=== PATIENT | male | born 1970 ===

== ENCOUNTER 2023-11-05 23:43 | Observation (INO) | payer OTHER ==
[2023-11-06 01:51] LABS: BASO % 1.1 % (0-2.0); EOS % 2.5 % (0-4.5); HEMATOCRIT 25.2 % (35.4-49); HEMOGLOBIN 8.2 GM/dL (11.7-16.9); LYMPH % 14.7 % (8-40); MCH 27.3 pg (25.7-33.7); MCHC 32.5 g/dl (32.0-35.9); MEAN PLT VOLUME 8.7 fl (7.5-11.1); NEUT % 74.7 % (42.8-82.8); PLATELET COUNT 280 10^3/uL (134-434); RDW 25.4 % (11.9-15.9)
[2023-11-06] MEDS: CLINDAMYCIN 300 MG PREMIX IVPB 300 MG/50 ML BAG IVPB ONE (02:15)
[2023-11-06 02:52] LABS: ALBUMIN 2.1 g/dl (3.4-5.0); BLOOD UREA NITROGEN 34.4 mg/dL (7-18)
[2023-11-06 02:56] LABS: CREATININE 2.3 mg/dL (0.55-1.3)
[2023-11-06 02:57] LABS: BILIRUBIN,TOTAL 0.9 mg/dL (0.2-1); TOT PROT 6.9 g/dl (6.4-8.2)
[2023-11-06 04:39] LABS: OVALOCYTE 1+
[2023-11-06] MEDS ORDERED: oxyCODONE HCL 5 MG TABLET PO PRN (06:46)
[2023-11-06] MEDS ORDERED: ACETAMINOPHEN 325 MG TABLET (FP) PO PRN (06:54)
[2023-11-06] MEDS: INSULIN ASPART SLIDING SCALE (NOVOLOG) 1 VIAL SQ SCH (07:45)
[2023-11-06 08:30] LABS: MAGNESIUM 1.5 mg/dL (1.8-2.4)
[2023-11-06 08:33] LABS: PHOSPHOROUS 2.7 mg/dL (2.5-4.9)
[2023-11-06] MEDS: CLINDAMYCIN 300 MG PREMIX IVPB 300 MG/50 ML BAG IVPB SCH (09:13)
[2023-11-06] MEDS ORDERED: PIPERACILLIN/TAZOB 3.375 GM 3.375 GM/50 ML BAG IVPB ONE (11:32)
[2023-11-06] MEDS: MULTIVITAMINS THER W-MINERALS COMBO TABLET (FP) PO SCH (11:44)
[2023-11-06] MEDS: metoPROLOL SUCCINATE 25 MG TAB.SR.24H (FP) PO SCH (11:44)
[2023-11-06] MEDS: ASCORBIC ACID 500 MG TABLET (FP) PO SCH (11:44)
[2023-11-06] MEDS: FERROUS GLUCONATE 324 MG TAB (FP) PO SCH (11:44)
[2023-11-06] MEDS: PIPERACILLIN/TAZOB 3.375 GM 3.375 GM in DEXTROSE 5%-WATER - 50 ML IVPB SCH (12:28)
[2023-11-06] MEDS: MAGNESIUM SULF 50% (8.12 MEQ/2 ML-1 GM VIAL) IVPB ONE (12:28)
[2023-11-06] MEDS ORDERED: MAGNESIUM 1GM/D5W - 1 GM/100 ML IVPB IVPB ONE (12:43)
[2023-11-06] MEDS ORDERED: SODIUM CHLORIDE 250 ML IV PRN (13:36)
[2023-11-06] MEDS ORDERED: MAGNESIUM OXIDE 400 MG TABLET (FP) PO ONE (15:15)
[2023-11-06] MEDS: EPOETIN ALFA-EPBX 10,000 UNIT/ML VIAL SQ ONE (18:42)
[2023-11-06] MEDS: TAMSULOSIN HCL 0.4 MG CAP PO SCH (21:24)
[2023-11-06] MEDS: ATORVASTATIN CA 40 MG TABLET (FP) PO SCH (21:24)
[2023-11-06] MEDS: PREGABALIN 25 MG CAPSULE PO SCH (21:25)
[2023-11-06] MEDS: MAGNESIUM OXIDE 400 MG TABLET (FP) PO ONE (21:29)
[2023-11-06 23:43] LABS: EPI CELLS 12 /uL (0-25.1); HYALINE CASTS 2 /uL (0-3.1); URINE APPEARANCE CLEAR; URINE BACTERIA 11 /uL (0-1359); URINE BILIRUBIN 1+ (NEGATIVE); URINE COLOR DK YELLOW; URINE GLUCOSE (UA) NEGATIVE (NEGATIVE); URINE KETONE TRACE (NEGATIVE); URINE LEUK ESTERASE 1+ (NEGATIVE); URINE NITRITE NEGATIVE (NEGATIVE); URINE PROTEIN 2+ (NEGATIVE); URINE UROBILINOGEN 0.2 mg/dL (0.2-1.0); URINE WBC 72 /uL (0-25.8)
[2023-11-07 00:14] LABS: URINE RBC 21.4 /uL (0-23.9); YEAST NONE SEEN (NEGATIVE)
[2023-11-07 00:15] LABS: URINE CRYSTALS MODERATE /hpf
[2023-11-07] MEDS: PIPERACILLIN/TAZOB 3.375 GM 3.375 GM in DEXTROSE 5%-WATER - 50 ML IVPB SCH ×2 (02:00→15:41)
[2023-11-07 08:33] LABS: BASO % 0.9 % (0-2.0); EOS % 1.5 % (0-4.5); HEMOGLOBIN 7.1 GM/dL (11.7-16.9); LYMPH % 15.4 % (8-40); MCH 27.1 pg (25.7-33.7); MCHC 32.4 g/dl (32.0-35.9); MEAN CELL VOLUME 83.8 fl (80-96); MEAN PLT VOLUME 8.5 fl (7.5-11.1); MONO % 6.9 % (3.8-10.2); NEUT % 75.3 % (42.8-82.8); PLATELET COUNT 269 10^3/uL (134-434); RBC 2.63 M/mm3 (4.00-5.60); RDW 25.1 % (11.9-15.9); WHITE BLOOD COUNT 8.6 K/mm3 (4.0-10.0)
[2023-11-07 09:01] LABS: BLOOD UREA NITROGEN 20.8 mg/dL (7-18)
[2023-11-07 09:03] LABS: CALCIUM 8.2 mg/dL (8.5-10.1); CREATININE 1.5 mg/dL (0.55-1.3)
[2023-11-07] MEDS: IRON SUCROSE INJECTION 200 MG in SODIUM CHLORIDE 100 ML IVPB ONE (21:44)
[2023-11-08 09:57] LABS: HEMATOCRIT 22.4 % (35.4-49); HEMOGLOBIN 7.1 GM/dL (11.7-16.9); MCH 26.5 pg (25.7-33.7); MCHC 31.7 g/dl (32.0-35.9); MEAN CELL VOLUME 83.6 fl (80-96); MEAN PLT VOLUME 8.4 fl (7.5-11.1); PLATELET COUNT 280 10^3/uL (134-434); RBC 2.68 M/mm3 (4.00-5.60); WHITE BLOOD COUNT 8.3 K/mm3 (4.0-10.0)
[2023-11-08 10:32] LABS: POTASSIUM 4.1 mmol/L (3.5-5.1)
[2023-11-08 10:37] LABS: CALCIUM 8.3 mg/dL (8.5-10.1)
[2023-11-08 10:38] LABS: ALBUMIN 1.9 g/dl (3.4-5.0)
[2023-11-08 10:43] LABS: BILIRUBIN,TOTAL 1.4 mg/dL (0.2-1)
[2023-11-08] MEDS ORDERED: SODIUM CHLORIDE 250 ML IV PRN (10:59)
[2023-11-08] MEDS: EPOETIN ALFA-EPBX 10,000 UNIT/ML VIAL IVPUSH ONE (11:49)
[2023-11-08 12:11] LABS: BILIRUBIN,DIRECT 0.7 mg/dL (0.0-0.2)
[2023-11-08 15:56] VITALS: BMI 28.5
[2023-11-08 21:40] VITALS: RESP 20
[2023-11-09 13:12] VITALS: BP 101/65; PULSE 93; TEMP 97.8
== END 2023-11-09 15:00 ==
LOC: JER 23:43 → JERBED 11-06 00:49 → J8W 11-06 20:14
PROVIDERS: ADMIT Internal Medicine; ATTEND Family Medicine
PROC: 3E023GC Introduction of Other Therapeutic Substance into Muscle, Percutaneous Approach (ICD-10-PCS; principal; 2023-11-06)
PROC: 3E033GC Introduction of Other Therapeutic Substance into Peripheral Vein, Percutaneous Approach (ICD-10-PCS; 2023-11-06)
PROC: 3E013VG Introduction of Insulin into Subcutaneous Tissue, Percutaneous Approach (ICD-10-PCS; 2023-11-06)
PROC: 3E03329 Introduction of Other Anti-infective into Peripheral Vein, Percutaneous Approach (ICD-10-PCS; 2023-11-06)
DX: N47.1 Phimosis (principal); N48.1 Balanitis; N18.6 End stage renal disease; I50.9 Heart failure, unspecified; D64.9 Anemia, unspecified; M62.81 Muscle weakness (generalized); E83.42 Hypomagnesemia; I25.10 Atherosclerotic heart disease of native coronary artery without angina pectoris; R60.0 Localized edema; I11.0 Hypertensive heart disease with heart failure; Z99.2 Dependence on renal dialysis; Z89.511 Acquired absence of right leg below knee; N40.0 Benign prostatic hyperplasia without lower urinary tract symptoms; Z95.810 Presence of automatic (implantable) cardiac defibrillator; E11.22 Type 2 diabetes mellitus with diabetic chronic kidney disease; Z86.73 Personal history of transient ischemic attack (TIA), and cerebral infarction without residual deficits; N35.919 Unspecified urethral stricture, male, unspecified site
CPT/HCPCS: 36415; 71045-TC-FY; 80048; 80053; 81003; 82248; 82272; 82728; 82962; 82977; 83540; 83550; 83735; 84100; 84466; 85025; 85027; 85045; 86704; 86803; 87040; 87340; 87491; 87517; 87591; 87635; 93005; 93010; 96365; 96366; 96367; 96368; 96372; 96375; 99285-25; G0378; J1756; Q5106

== ENCOUNTER 2024-01-07 02:31 | Emergency (ER) | payer OTHER ==
[2024-01-07 02:47] VITALS: BP 113/75; PULSE 90; RESP 20; TEMP 97.5; BMI 29.5
== END 2024-01-07 04:43 | disposition home or self-care (01) ==
LOC: JER 02:31
DX: Z02.79 Encounter for issue of other medical certificate (principal)
CPT/HCPCS: 99281-25

== ENCOUNTER 2024-01-07 06:58 | Inpatient (IN) | payer OTHER ==
[2024-01-07 09:25] LABS: BASO % 0.6 % (0-2.0); HEMATOCRIT 34.1 % (35.4-49); HEMOGLOBIN 10.8 GM/dL (11.7-16.9); LYMPH % 17.1 % (8-40); MCH 28.4 pg (25.7-33.7); MCHC 31.8 g/dl (32.0-35.9); MEAN CELL VOLUME 89.4 fl (80-96); MONO % 7.8 % (3.8-10.2); NEUT % 73.5 % (42.8-82.8); PLATELET COUNT 227 10^3/uL (134-434); RBC 3.81 M/mm3 (4.00-5.60); RDW 18.5 % (11.9-15.9); WHITE BLOOD COUNT 6.5 K/mm3 (4.0-10.0)
[2024-01-07 09:27] LABS: INR 1.31 (0.83-1.09); PROTHROMBIN TIME (PATIENT) 14.7 SEC (9.7-13.0)
[2024-01-07 09:29] LABS: ACTIVATED PTT 32.9 SECONDS (25.2-36.5)
[2024-01-07 09:37] LABS: POTASSIUM 4.3 mmol/L (3.5-5.1)
[2024-01-07 09:40] LABS: ALBUMIN 2.8 g/dl (3.4-5.0); BLOOD UREA NITROGEN 32.9 mg/dL (7-18)
[2024-01-07 09:43] LABS: CREATININE 1.6 mg/dL (0.55-1.3)
[2024-01-07 09:45] LABS: BILIRUBIN,TOTAL 1.3 mg/dL (0.2-1)
[2024-01-07] MEDS ORDERED: metoPROLOL SUCCINATE 25 MG TAB.SR.24H (FP) PO ONE (11:33)
[2024-01-07] MEDS: metoPROLOL SUCCINATE 25 MG TAB.SR.24H (FP) PO SCH (11:38)
[2024-01-07] MEDS: INSULIN ASPART SLIDING SCALE (NOVOLOG) 1 VIAL SQ SCH (12:36)
[2024-01-07] MEDS: INSULIN (LEVEMIR) 100 UNITS/ML UNITS SQ SCH (21:25)
[2024-01-07] MEDS: TAMSULOSIN HCL 0.4 MG CAP PO SCH (21:25)
[2024-01-07] MEDS: PREGABALIN 25 MG CAPSULE PO SCH (21:25)
[2024-01-07] MEDS: ATORVASTATIN CA 40 MG TABLET (FP) PO SCH (21:25)
[2024-01-08] MEDS: FUROSEMIDE 40 MG/4 ML INJECTABLE VIAL IVPUSH ONE (14:13)
[2024-01-08] MEDS ORDERED: INSULIN (LEVEMIR) 100 UNITS/ML UNITS SQ SCH (20:25)
[2024-01-08] MEDS: INSULIN (LEVEMIR) 100 UNITS/ML UNITS SQ SCH (21:04)
[2024-01-09] MEDS ORDERED: INSULIN (LEVEMIR) 100 UNITS/ML UNITS SQ ONE (06:24)
[2024-01-09 08:42] LABS: HEMATOCRIT 35.6 % (35.4-49); MCH 27.9 pg (25.7-33.7); MCHC 30.9 g/dl (32.0-35.9); MEAN CELL VOLUME 90.3 fl (80-96); MEAN PLT VOLUME 9.4 fl (7.5-11.1); PLATELET COUNT 234 10^3/uL (134-434); RBC 3.94 M/mm3 (4.00-5.60); RDW 18.4 % (11.9-15.9); WHITE BLOOD COUNT 6.2 K/mm3 (4.0-10.0)
[2024-01-09 08:53] LABS: POTASSIUM 4.1 mmol/L (3.5-5.1)
[2024-01-09 08:58] LABS: ALBUMIN 2.7 g/dl (3.4-5.0); BLOOD UREA NITROGEN 36.5 mg/dL (7-18); CALCIUM 9.3 mg/dL (8.5-10.1)
[2024-01-09 09:01] LABS: CREATININE 1.7 mg/dL (0.55-1.3)
[2024-01-09 09:03] LABS: BILIRUBIN,TOTAL 1.4 mg/dL (0.2-1); TOT PROT 6.9 g/dl (6.4-8.2)
[2024-01-09] MEDS: ENOXAPARIN NA (PORCINE) 40 MG/0.4 ML DISP.SYRIN SQ SCH (09:05)
[2024-01-09] MEDS: ACETAMINOPHEN 325 MG TABLET (FP) PO PRN (09:05)
[2024-01-09] MEDS: FUROSEMIDE 40 MG/4 ML INJECTABLE VIAL IVPUSH SCH (11:48)
[2024-01-09] MEDS: PIPERACILLIN/TAZOB 3.375 GM 3.375 GM in DEXTROSE 5%-WATER - 50 ML IVPB SCH ×3 (15:04→18:12)
[2024-01-09] MEDS ORDERED: PIPERACILLIN/TAZOBACTAM 3.375 GM VIAL IVPB ONE (15:05)
[2024-01-09] MEDS: DOXYCYCLINE HYCLATE 100 MG CAPSULE PO SCH (18:02)
[2024-01-10] MEDS ORDERED: INSULIN (LEVEMIR) 100 UNITS/ML UNITS SQ ONE (07:17)
[2024-01-10] MEDS ORDERED: INSULIN ASPART SLIDING SCALE (NOVOLOG) 1 VIAL SQ ONE (07:17)
[2024-01-10 08:05] LABS: HEMATOCRIT 33.7 % (35.4-49); MCH 28.9 pg (25.7-33.7); MCHC 32.7 g/dl (32.0-35.9); MEAN CELL VOLUME 88.3 fl (80-96); MEAN PLT VOLUME 9.4 fl (7.5-11.1); PLATELET COUNT 221 10^3/uL (134-434); RBC 3.82 M/mm3 (4.00-5.60); RDW 18.5 % (11.9-15.9); WHITE BLOOD COUNT 5.9 K/mm3 (4.0-10.0)
[2024-01-10 08:23] LABS: POTASSIUM 3.8 mmol/L (3.5-5.1)
[2024-01-10 08:25] LABS: ALBUMIN 2.6 g/dl (3.4-5.0); BLOOD UREA NITROGEN 40.1 mg/dL (7-18); CALCIUM 9.2 mg/dL (8.5-10.1)
[2024-01-10 08:31] LABS: BILIRUBIN,TOTAL 1.4 mg/dL (0.2-1); TOT PROT 6.4 g/dl (6.4-8.2)
[2024-01-10] MEDS: COLLAGENASE CLOSTRIDIUM HIST. 30 GRAMS TUBE TP SCH (09:53)
[2024-01-10] MEDS ORDERED: FUROSEMIDE 40 MG/4 ML INJECTABLE VIAL IVPUSH SCH (10:00)
[2024-01-10] MEDS: PIPERACILLIN/TAZOB 2.25 GM 2.25 GM in DEXTROSE 5%-WATER - 50 ML IVPB SCH (17:44)
[2024-01-11 07:46] LABS: HEMATOCRIT 34.2 % (35.4-49); HEMOGLOBIN 11.1 GM/dL (11.7-16.9); MCH 28.8 pg (25.7-33.7); MCHC 32.5 g/dl (32.0-35.9); MEAN CELL VOLUME 88.6 fl (80-96); MEAN PLT VOLUME 9.6 fl (7.5-11.1); PLATELET COUNT 225 10^3/uL (134-434); RBC 3.86 M/mm3 (4.00-5.60); RDW 18.4 % (11.9-15.9); WHITE BLOOD COUNT 5.9 K/mm3 (4.0-10.0)
[2024-01-11 08:10] LABS: BLOOD UREA NITROGEN 40.5 mg/dL (7-18); MAGNESIUM 1.9 mg/dL (1.8-2.4)
[2024-01-11 08:13] LABS: CREATININE 1.9 mg/dL (0.55-1.3); PHOSPHOROUS 4.3 mg/dL (2.5-4.9)
[2024-01-11] MEDS: MAGNESIUM OXIDE 400 MG TABLET (FP) PO ONE (08:57)
[2024-01-11] MEDS: FUROSEMIDE 40 MG/4 ML INJECTABLE VIAL IVPUSH SCH (09:02)
[2024-01-11] MEDS ORDERED: HEPARIN NA (PORCINE) 5,000 UNITS/ML 1ML VIAL ONE (15:26)
[2024-01-11] MEDS ORDERED: LIDOCAINE HCL 1%, 10 MG/ML (20ML VIAL) ONE (15:26)
[2024-01-11] MEDS ORDERED: MIDAZOLAM HCL 2 MG/2 ML SINGLE DOSE VIAL ONE (17:41)
[2024-01-11] MEDS ORDERED: METOCLOPRAMIDE HCL INJECTION 10 MG/2 ML VIAL ONE (17:41)
[2024-01-11] MEDS ORDERED: ONDANSETRON 4 MG/2 ML VIAL ONE (17:41)
[2024-01-11] MEDS ORDERED: SEVOFLURANE 250 ML BTL ONE (17:41)
[2024-01-11] MEDS: PIPERACILLIN/TAZOBACTAM 2.25 GM VIAL IVPB ONE (17:50)
[2024-01-11] MEDS ORDERED: FENTANYL CITRATE/PF 50 MCG/ML VIAL ONE (18:12)
[2024-01-11] MEDS: LIDOCAINE HCL 1%, 10 MG/ML (20ML VIAL) NR ONE (18:14)
[2024-01-11] MEDS ORDERED: MAGNESIUM SULF 50% (8.12 MEQ/2 ML-1 GM VIAL) ONE (19:06)
[2024-01-11] MEDS ORDERED: LIDOCAINE HCL/PF 2% SDV 5ML VIAL ONE (19:06)
[2024-01-11] MEDS ORDERED: SODIUM CHLORIDE 1,000 ML IV SCH (19:45)
[2024-01-11] MEDS ORDERED: oxyCODONE HCL 5 MG TABLET PO PRN (20:11)
[2024-01-11] MEDS ORDERED: ACETAMINOPHEN 325 MG TABLET (FP) PO PRN (20:11)
[2024-01-11] MEDS: CLOPIDOGREL BISULFATE 75 MG TABLET (FP) PO SCH (20:21)
[2024-01-11] MEDS: ASPIRIN 81 MG CHEWABLE TABLETS PO SCH (20:21)
[2024-01-11] MEDS: INSULIN (LEVEMIR) 100 UNITS/ML UNITS SQ SCH (21:44)
[2024-01-11] MEDS: TAMSULOSIN HCL 0.4 MG CAP PO SCH (21:44)
[2024-01-11] MEDS: PREGABALIN 25 MG CAPSULE PO SCH (21:44)
[2024-01-11] MEDS: ATORVASTATIN CA 40 MG TABLET (FP) PO SCH (21:44)
[2024-01-11] MEDS: SODIUM CHLORIDE 1,000 ML IV SCH (23:28)
[2024-01-12] MEDS: PIPERACILLIN/TAZOB 2.25 GM 2.25 GM in DEXTROSE 5%-WATER - 50 ML IVPB SCH (01:59)
[2024-01-12] MEDS: INSULIN ASPART SLIDING SCALE (NOVOLOG) 1 VIAL SQ SCH (07:42)
[2024-01-12 07:50] LABS: HEMATOCRIT 33.1 % (35.4-49); HEMOGLOBIN 10.5 GM/dL (11.7-16.9); MCH 28.5 pg (25.7-33.7); MCHC 31.7 g/dl (32.0-35.9); MEAN PLT VOLUME 9.4 fl (7.5-11.1); PLATELET COUNT 208 10^3/uL (134-434); RBC 3.68 M/mm3 (4.00-5.60); RDW 18.1 % (11.9-15.9); WHITE BLOOD COUNT 5.1 K/mm3 (4.0-10.0)
[2024-01-12 08:16] LABS: BLOOD UREA NITROGEN 38.9 mg/dL (7-18); CALCIUM 8.6 mg/dL (8.5-10.1)
[2024-01-12] MEDS: DOXYCYCLINE HYCLATE 100 MG CAPSULE PO SCH (10:13)
[2024-01-12] MEDS: VITAMIN B COMP W-C 1 EA TABLET (NEPHRO-VITE) PO SCH (10:13)
[2024-01-12] MEDS: metoPROLOL SUCCINATE 25 MG TAB.SR.24H (FP) PO SCH (10:14)
[2024-01-12] MEDS: FUROSEMIDE 40 MG/4 ML INJECTABLE VIAL IVPUSH SCH (10:14)
[2024-01-12] MEDS: ENOXAPARIN NA (PORCINE) 40 MG/0.4 ML DISP.SYRIN SQ SCH (10:24)
[2024-01-12] MEDS: COLLAGENASE CLOSTRIDIUM HIST. 30 GRAMS TUBE TP SCH (10:29)
[2024-01-12] MEDS: FUROSEMIDE 40 MG/4 ML INJECTABLE VIAL IVPUSH ONE (17:42)
[2024-01-13 08:33] LABS: POTASSIUM 3.8 mmol/L (3.5-5.1)
[2024-01-13 08:36] LABS: BLOOD UREA NITROGEN 41.6 mg/dL (7-18); CALCIUM 8.5 mg/dL (8.5-10.1); MAGNESIUM 1.9 mg/dL (1.8-2.4)
[2024-01-13] MEDS: ERTAPENEM SODIUM 0.5 GM in SODIUM CHLORIDE 50 ML IVPB SCH (09:08)
[2024-01-13 11:12] VITALS: BMI 28.9
[2024-01-13] MEDS ORDERED: FUROSEMIDE 40 MG/4 ML INJECTABLE VIAL IVPUSH ONE (14:00)
[2024-01-13] MEDS: AMINO ACIDS/PROTEIN HYDROLYS 30 ML LIQUID.PKT PO SCH (14:04)
[2024-01-13] MEDS: FUROSEMIDE 40 MG/4 ML INJECTABLE VIAL IVPUSH ONE (15:08)
[2024-01-14] MEDS ORDERED: INSULIN (LEVEMIR) 100 UNITS/ML UNITS SQ ONE (06:53)
[2024-01-14 09:24] LABS: POTASSIUM 3.7 mmol/L (3.5-5.1)
[2024-01-14 09:29] LABS: CALCIUM 8.7 mg/dL (8.5-10.1)
[2024-01-14 09:30] LABS: BLOOD UREA NITROGEN 42.8 mg/dL (7-18)
[2024-01-14 09:32] LABS: CREATININE 1.8 mg/dL (0.55-1.3)
[2024-01-14] MEDS: FUROSEMIDE 40 MG/4 ML INJECTABLE VIAL IVPUSH ONE (13:03)
[2024-01-15 06:11] VITALS: RESP 18
[2024-01-15] MEDS ORDERED: INSULIN ASPART SLIDING SCALE (NOVOLOG) 1 VIAL SQ ONE (06:46)
[2024-01-15] MEDS ORDERED: INSULIN (LEVEMIR) 100 UNITS/ML UNITS SQ ONE (06:46)
[2024-01-15] MEDS: FUROSEMIDE 40 MG/4 ML INJECTABLE VIAL IVPUSH ONE (08:39)
[2024-01-15 08:57] LABS: POTASSIUM 4.3 mmol/L (3.5-5.1)
[2024-01-15 09:02] LABS: BLOOD UREA NITROGEN 48.1 mg/dL (7-18)
[2024-01-15 12:54] VITALS: BP 112/73; PULSE 68; TEMP 97.7
[2024-01-16 16:08] LABS: FREE KAPPA,SERUM 84.3 mg/L (3.3-19.4)
== END 2024-01-15 13:19 | DRG 181 ==
LOC: JER 06:58 → JERBED 08:50 → J6S 11:55 → OBSVTOIN 01-09 13:30 → J6S 01-12 14:43
PROVIDERS: ADMIT Internal Medicine; ATTEND Internal Medicine
PROC: 047U3ZZ Dilation of Left Peroneal Artery, Percutaneous Approach (ICD-10-PCS; principal; 2024-01-11 17:30)
PROC: 05HY33Z Insertion of Infusion Device into Upper Vein, Percutaneous Approach (ICD-10-PCS; 2024-01-15)
DX: E11.51 Type 2 diabetes mellitus with diabetic peripheral angiopathy without gangrene (principal); E11.22 Type 2 diabetes mellitus with diabetic chronic kidney disease; I50.23 Acute on chronic systolic (congestive) heart failure; E11.42 Type 2 diabetes mellitus with diabetic polyneuropathy; L03.116 Cellulitis of left lower limb; E11.65 Type 2 diabetes mellitus with hyperglycemia; L97.529 Non-pressure chronic ulcer of other part of left foot with unspecified severity; E78.5 Hyperlipidemia, unspecified; I25.10 Atherosclerotic heart disease of native coronary artery without angina pectoris; Z89.511 Acquired absence of right leg below knee; I13.0 Hypertensive heart and chronic kidney disease with heart failure and stage 1 through stage 4 chronic kidney disease, or unspecified chronic kidney disease; N18.9 Chronic kidney disease, unspecified
CPT/HCPCS: 0241U-QW; 36415; 36569; 73630-TC-LT; 76000-TC-FY; 76775-TC; 80048; 80053; 82784; 82962; 83036; 83615; 83735; 83883; 84100; 84155; 84165; 84484; 85025; 85027; 85045; 85610; 85651; 85730; 86140; 86850; 86900; 86901; 87070; 87186; 87205; 93005; 93010; 93926-TC; 94760; 99285-25; C1760; C1769; G0378; J1644

== ENCOUNTER 2024-05-09 16:56 | Inpatient (IN) | payer OTHER ==
[2024-05-09 17:14] VITALS: BMI 29.5
[2024-05-09 18:22] LABS: BASO % 0.5 % (0-2.0); EOS % 1.4 % (0-4.5); HEMATOCRIT 26.8 % (35.4-49); HEMOGLOBIN 8.8 GM/dL (11.7-16.9); LYMPH % 14.1 % (8-40); MCH 30.3 pg (25.7-33.7); MCHC 32.9 g/dl (32.0-35.9); MEAN PLT VOLUME 9.6 fl (7.5-11.1); MONO % 9.1 % (3.8-10.2); NEUT % 74.9 % (42.8-82.8); PLATELET COUNT 172 10^3/uL (134-434); RBC 2.92 M/mm3 (4.00-5.60); RDW 21.7 % (11.9-15.9); WHITE BLOOD COUNT 6.3 K/mm3 (4.0-10.0)
[2024-05-09 18:51] LABS: POTASSIUM 5.6 mmol/L (3.5-5.1)
[2024-05-09 18:53] LABS: ALBUMIN 2.9 g/dl (3.4-5.0); BLOOD UREA NITROGEN 70.5 mg/dL (7-18); CALCIUM 9.3 mg/dL (8.5-10.1)
[2024-05-09 18:56] LABS: CREATININE 3.8 mg/dL (0.55-1.3)
[2024-05-09 18:58] LABS: BILIRUBIN,TOTAL 0.8 mg/dL (0.2-1); TOT PROT 6.6 g/dl (6.4-8.2)
[2024-05-09] MEDS ORDERED: DEXTROSE 50%-WATER 25 GM/50 ML DISP.SYRIN ONE (19:26)
[2024-05-09] MEDS ORDERED: CALCIUM GLUC IN NACL, ISO-OSM 1 GM/50 ML BAG IVPB ONE (19:26)
[2024-05-09 19:35] LABS: HIV INTERPRETATION NEGATIVE (NEGATIVE)
[2024-05-09] MEDS: LACTATED RINGERS SOLUTION 1000 ML INFUS.BAG IV ONE (19:40)
[2024-05-09] MEDS: DEXTROSE 50%-WATER - 25 GM/50 ML VIAL IVPUSH ONE (19:41)
[2024-05-09] MEDS: CALCIUM GLUC IN NACL, ISO-OSM 1 GM/50 ML BAG IVPB ONE (19:41)
[2024-05-09] MEDS: INSULIN REGULAR HUMAN 100 UNITS/ML *VIAL IVPUSH ONE (19:41)
[2024-05-09] MEDS ORDERED: SODIUM ZIRCONIUM CYCLOSILICATE (LOKELMA) 10 GM PACKET ONE (20:07)
[2024-05-09] MEDS: SODIUM ZIRCONIUM CYCLOSILICATE (LOKELMA) 5 GM PACKET PO ONE (20:12)
[2024-05-10] MEDS: SODIUM CHLORIDE 1,000 ML IV SCH ×2 (02:58→04:47)
[2024-05-10] MEDS ORDERED: morphine CARPU-JECT 2 MG/1 ML DISP.SYRIN IVPUSH ONE (04:15)
[2024-05-10] MEDS: ACETAMINOPHEN 1000 MG/100 ML BAG IVPB ONE (04:33)
[2024-05-10] MEDS ORDERED: INSULIN ASPART SLIDING SCALE (NOVOLOG) 1 VIAL SQ SCH (07:00)
[2024-05-10] MEDS ORDERED: HEPARIN NA (PORCINE) 5,000 UNITS/ML 1ML VIAL ONE (07:05)
[2024-05-10] MEDS: HEPARIN NA (PORCINE) 5,000 UNITS/ML 1ML VIAL SQ SCH (07:13)
[2024-05-10] MEDS: INSULIN ASPART SLIDING SCALE (NOVOLOG) 1 VIAL SQ SCH (08:58)
[2024-05-10] MEDS ORDERED: PANTOPRAZOLE SODIUM 40 MG VIAL ONE (09:41)
[2024-05-10] MEDS: PANTOPRAZOLE SODIUM 40 MG VIAL IVPUSH SCH (09:49)
[2024-05-10 11:42] LABS: EPI CELLS 2 /uL (0-25.1); HYALINE CASTS 0 /uL (0-3.1); PH,URINE 6.5 (5.0-8.0); URINE APPEARANCE CLEAR; URINE BACTERIA 2 /uL (0-1359); URINE BILIRUBIN NEGATIVE (NEGATIVE); URINE COLOR YELLOW; URINE GLUCOSE (UA) 3+ (NEGATIVE); URINE KETONE NEGATIVE (NEGATIVE); URINE LEUK ESTERASE NEGATIVE (NEGATIVE); URINE NITRITE NEGATIVE (NEGATIVE); URINE PROTEIN 2+ (NEGATIVE); URINE RBC 15 /uL (0-23.9); URINE WBC 1 /uL (0-25.8)
[2024-05-10] MEDS: oxyCODONE HCL 5 MG TABLET PO PRN (13:44)
[2024-05-10] MEDS: GABAPENTIN 100 MG CAPSULE PO SCH (15:38)
[2024-05-10 16:58] LABS: BF WBC & OTHER NUCLEATED CELLS 1254 /mm3; BODY FLUID MESOTHELIAL 5 %; BODY FLUID MONOCYTE 29 %
[2024-05-10] MEDS: ATORVASTATIN CA 40 MG TABLET (FP) PO SCH (22:40)
[2024-05-10] MEDS: TAMSULOSIN HCL 0.4 MG CAP PO SCH (22:40)
[2024-05-11] MEDS ORDERED: INSULIN ASPART SLIDING SCALE (NOVOLOG) 1 VIAL SQ ONE (07:10)
[2024-05-11 08:54] LABS: BASO % 0.4 % (0-2.0); EOS % 1.7 % (0-4.5); HEMATOCRIT 29.6 % (35.4-49); HEMOGLOBIN 9.6 GM/dL (11.7-16.9); LYMPH % 8.6 % (8-40); MCHC 32.5 g/dl (32.0-35.9); MEAN CELL VOLUME 92.3 fl (80-96); MEAN PLT VOLUME 9.5 fl (7.5-11.1); NEUT % 84.3 % (42.8-82.8); PLATELET COUNT 173 10^3/uL (134-434); RBC 3.21 M/mm3 (4.00-5.60); RDW 21.2 % (11.9-15.9); WHITE BLOOD COUNT 8.1 K/mm3 (4.0-10.0)
[2024-05-11 09:25] LABS: POTASSIUM 5.4 mmol/L (3.5-5.1)
[2024-05-11 09:27] LABS: ALBUMIN 3.2 g/dl (3.4-5.0); BLOOD UREA NITROGEN 49.6 mg/dL (7-18); CALCIUM 9.5 mg/dL (8.5-10.1); MAGNESIUM 2.3 mg/dL (1.8-2.4)
[2024-05-11 09:31] LABS: CREATININE 2.6 mg/dL (0.55-1.3); PHOSPHOROUS 3.7 mg/dL (2.5-4.9)
[2024-05-11 09:32] LABS: BILIRUBIN,TOTAL 1.3 mg/dL (0.2-1); TOT PROT 7.2 g/dl (6.4-8.2)
[2024-05-11] MEDS: ACETAMINOPHEN 1000 MG/100 ML BAG IVPB PRN (11:25)
[2024-05-11] MEDS: SODIUM ZIRCONIUM CYCLOSILICATE (LOKELMA) 5 GM PACKET PO ONE (18:57)
[2024-05-12] MEDS: POLYETHYLENE GLYCOL (HEALTHYLAX) 3350 17 GM PACKET PO SCH (18:49)
[2024-05-13 09:46] LABS: POTASSIUM 5.9 mmol/L (3.5-5.1)
[2024-05-13 09:55] LABS: CALCIUM 9.1 mg/dL (8.5-10.1)
[2024-05-13 09:56] LABS: ALBUMIN 2.8 g/dl (3.4-5.0); BLOOD UREA NITROGEN 39.3 mg/dL (7-18)
[2024-05-13 09:59] LABS: CREATININE 2.1 mg/dL (0.55-1.3)
[2024-05-13 10:00] LABS: BILIRUBIN,TOTAL 1.2 mg/dL (0.2-1); TOT PROT 6.5 g/dl (6.4-8.2)
[2024-05-13 10:12] LABS: BASO % 0.6 % (0-2.0); EOS % 3.2 % (0-4.5); HEMATOCRIT 26.4 % (35.4-49); HEMOGLOBIN 8.8 GM/dL (11.7-16.9); LYMPH % 26.7 % (8-40); MCH 30.6 pg (25.7-33.7); MCHC 33.3 g/dl (32.0-35.9); MEAN CELL VOLUME 91.9 fl (80-96); MEAN PLT VOLUME 9.3 fl (7.5-11.1); MONO % 9.3 % (3.8-10.2); NEUT % 60.2 % (42.8-82.8); PLATELET COUNT 159 10^3/uL (134-434); RBC 2.87 M/mm3 (4.00-5.60); RDW 20.7 % (11.9-15.9); WHITE BLOOD COUNT 4.5 K/mm3 (4.0-10.0)
[2024-05-13 11:12] LABS: ANISOCYTOSIS 2+; MACROCYTOSIS 0
[2024-05-13] MEDS ORDERED: SODIUM CHLORIDE 0.45% 1,000 ML IV SCH (13:30)
[2024-05-13] MEDS: SODIUM ZIRCONIUM CYCLOSILICATE (LOKELMA) 5 GM PACKET PO SCH (15:03)
[2024-05-13] MEDS: SODIUM CHLORIDE 0.45% 1,000 ML IV SCH (20:07)
[2024-05-14 07:43] LABS: POTASSIUM 5.5 mmol/L (3.5-5.1)
[2024-05-14 07:52] LABS: ALBUMIN 2.9 g/dl (3.4-5.0); BLOOD UREA NITROGEN 33.6 mg/dL (7-18); CALCIUM 9.2 mg/dL (8.5-10.1); CREATININE 1.8 mg/dL (0.55-1.3)
[2024-05-14 07:54] LABS: TOT PROT 6.3 g/dl (6.4-8.2)
[2024-05-14] MEDS: CARVEDILOL 6.25 MG TABLET (FP) PO SCH (10:18)
[2024-05-14] MEDS: PANTOPRAZOLE 40 MG TABLET PO SCH (10:18)
[2024-05-14] MEDS: SODIUM CHLORIDE 0.45% 1,000 ML IV SCH (14:32)
[2024-05-14 17:09] LABS: BODY FLUID ALBUMIN 2.4 g/dL (Not Estab.)
[2024-05-14 17:09] LABS: BODY FLUID ALBUMIN 2.3 g/dL (Not Estab.)
[2024-05-14] MEDS: oxyCODONE HCL 5 MG TABLET PO PRN (21:25)
[2024-05-15 07:15] LABS: BASO % 0.8 % (0-2.0); EOS % 3.3 % (0-4.5); HEMATOCRIT 26.6 % (35.4-49); HEMOGLOBIN 8.7 GM/dL (11.7-16.9); LYMPH % 28.8 % (8-40); MCH 30.6 pg (25.7-33.7); MCHC 32.9 g/dl (32.0-35.9); MEAN PLT VOLUME 9.2 fl (7.5-11.1); MONO % 9.6 % (3.8-10.2); NEUT % 57.5 % (42.8-82.8); PLATELET COUNT 157 10^3/uL (134-434); RBC 2.86 M/mm3 (4.00-5.60); RDW 20.3 % (11.9-15.9); WHITE BLOOD COUNT 4.1 K/mm3 (4.0-10.0)
[2024-05-15 07:36] LABS: POTASSIUM 4.9 mmol/L (3.5-5.1)
[2024-05-15 07:41] LABS: ALBUMIN 3.1 g/dl (3.4-5.0); CALCIUM 9.8 mg/dL (8.5-10.1)
[2024-05-15 07:44] LABS: CREATININE 1.8 mg/dL (0.55-1.3)
[2024-05-15 07:46] LABS: BILIRUBIN,TOTAL 1.2 mg/dL (0.2-1); TOT PROT 6.9 g/dl (6.4-8.2)
[2024-05-16 10:32] VITALS: BP 118/68; PULSE 78; RESP 18; TEMP 98.2
== END 2024-05-16 11:14 | DRG 447 ==
LOC: JER 16:56 → JERBED 21:51 → J4S 05-10 12:13
PROVIDERS: ADMIT Internal Medicine; ATTEND Family Medicine
PROC: 0W9G3ZX Drainage of Peritoneal Cavity, Percutaneous Approach, Diagnostic (ICD-10-PCS; principal; 2024-05-10)
DX: N17.9 Acute kidney failure, unspecified (principal); R18.8 Other ascites; E87.5 Hyperkalemia; D63.1 Anemia in chronic kidney disease; E78.5 Hyperlipidemia, unspecified; N40.0 Benign prostatic hyperplasia without lower urinary tract symptoms; E11.51 Type 2 diabetes mellitus with diabetic peripheral angiopathy without gangrene; I13.0 Hypertensive heart and chronic kidney disease with heart failure and stage 1 through stage 4 chronic kidney disease, or unspecified chronic kidney disease; E11.22 Type 2 diabetes mellitus with diabetic chronic kidney disease; N18.9 Chronic kidney disease, unspecified; I25.10 Atherosclerotic heart disease of native coronary artery without angina pectoris; I50.9 Heart failure, unspecified; K59.00 Constipation, unspecified; K57.90 Diverticulosis of intestine, part unspecified, without perforation or abscess without bleeding; R11.2 Nausea with vomiting, unspecified; Z89.611 Acquired absence of right leg above knee; Z89.612 Acquired absence of left leg above knee; Z95.810 Presence of automatic (implantable) cardiac defibrillator; Z95.1 Presence of aortocoronary bypass graft
CPT/HCPCS: 0241U-QW; 36415; 71045-TC-FY; 74176-TC; 76700-TC; 76775-TC; 76942-TC; 80048; 80053; 81003; 82042; 82140; 82150; 82272; 82465; 82550; 82728; 82945; 82962; 83036; 83516; 83540; 83550; 83615; 83735; 83986; 84080; 84100; 84157; 84478; 85025; 85045; 86038; 86803; 87070; 87075; 87102; 87116; 87205; 87206; 87210; 87389; 88108; 88305-TC; 93005; 93010; 93306-TC; 99285-25; J0131; J1644